=== PATIENT | female | born 1965 | race African-American/Black ===

== ENCOUNTER 2021-10-22 15:52 | Emergency (ER) | payer MEDICAID ==
[~2021-10-22] VITALS: Ht 160 cm; Wt 78.0 kg
[2021-10-22] MEDS ORDERED: IBUP-2028 MT (17:11)
[2021-10-22 17:15] VITALS: BP 110/67
[2021-10-22] MEDS ORDERED: KETOROLAC 60MG/2ML VIAL IM ONE (17:15)
== END 2021-10-22 17:52 | disposition home or self-care (01) ==
LOC: ER 15:52
DX: M25.511 Pain in right shoulder (principal); M54.2 Cervicalgia; M54.6 Pain in thoracic spine; Z85.6 Personal history of leukemia; Z88.5 Allergy status to narcotic agent
CPT/HCPCS: 96372; 99283; J1885

== ENCOUNTER 2022-07-06 21:36 | Emergency (ER) | payer MEDICAID, OTHER ==
[~2022-07-06] VITALS: Ht 160 cm; Wt 77.0 kg
[~2022-07-06 21:36] MED LIST: IBUP-2028 MT
[2022-07-06 21:41] VITALS: BP 119/78
== END 2022-07-07 02:28 | disposition left against medical advice (07) ==
LOC: ER 21:36
DX: Z53.21 Procedure and treatment not carried out due to patient leaving prior to being seen by health care provider (principal); R07.2 Precordial pain; R05.8 Other specified cough
CPT/HCPCS: 93005; 99281

== ENCOUNTER 2023-02-21 19:06 | Emergency (ER) | payer OTHER ==
[2023-02-21 19:08] VITALS: PULSE 99
[2023-02-21] MEDS ORDERED: LIDOCAINE 5% PATCH TOP SCH (19:30)
[2023-02-21] MEDS ORDERED: KETOROLAC 30MG/ML VIAL IM ONE (19:30)
== END 2023-02-21 20:28 | disposition left against medical advice (07) ==
LOC: ER 19:06
DX: M25.511 Pain in right shoulder (principal); M54.2 Cervicalgia; Z85.9 Personal history of malignant neoplasm, unspecified; Z88.0 Allergy status to penicillin; Z88.6 Allergy status to analgesic agent; Z98.890 Other specified postprocedural states
CPT/HCPCS: 99283